=== PATIENT | female | born 1950 | race Caucasian/White ===

== ENCOUNTER 2018-05-23 16:04 | Observation (INO) | payer BC, MEDICARE ==
[2018-05-23 16:35] LABS: #Basophils 0.1 thou/uL (0.0-0.2); #Eosinphils 0.1 thou/uL (0.0-0.7); #Monocytes 0.5 thou/uL (0.11-0.59); #Neutrophils 3.6 thou/uL (1.40-6.50); %Basophils 0.8 % (0.0-1.0); %Eosinophils 2.2 % (0.0-10.0); %Lymphocytes 31.5 % (21.0-51.0); %Monocytes 8.5 % (0.0-10.0); Hemoglobin 15.4 g/dL (12.0-16.0); Mean Corpuscular HGB CONC 33.7 g/dL (32.0-36.0); Mean Corpuscular Hemoglobin 30.7 pg (27.0-31.0); Mean Platelet Volume 7.6 fL (7.4-10.4); Platelet Count 241 thou/uL (130-400); RBC Distribution Width 12.2 % (11.5-14.5); Red Blood Cell (RBC) Count 5.02 mill/uL (4.20-5.40); White Blood Cell (WBC) Count 6.3 thou/uL (4.8-10.8)
[2018-05-23 16:53] LABS: ALT (SGPT) 25 U/L (8-55); AST (SGOT) 16 U/L (5-34); Alkaline Phosphatase 65 U/L (40-150); Anion Gap 16 mmol/L (10-20); BUN (Urea Nitrogen) 13 mg/dL (9.8-20.1); Bilirubin, Total 0.4 mg/dL (0.2-1.2); Calc. Creatinine Clearance 0 mL/min (70-130); Calcium 9.4 mg/dL (7.8-10.44); Carbon Dioxide 24 mmol/L (23-31); Chloride 104 mmol/L (98-107); Estimated GFR-MDRD Greater than 90; Globulin 2.5 g/dL (2.4-3.5); Glucose 103 mg/dL (80-115); Potassium 4.5 mmol/L (3.5-5.1); Protein, Total 6.5 g/dL (6.0-8.3); Sodium 139 mmol/L (136-145)
[2018-05-23 17:01] LABS: CKMB 1.2 ng/mL (0-6.6); Troponin I Less than 0.010 ng/mL (< 0.028)
--- NOTE | 2018-05-23 17:02 | RAD ---
PORTABLE CHEST ONE VIEW 05/23/18 at 3:44 p.m. HISTORY: Chest pain and palpitations. FINDINGS: Comparison is made with the exam of 10/28/14. There is continued elevation of the right hemidiaphragm. The heart size is borderline but stable. The lungs are well expanded without lobar consolidation, pneumothoraces, daniel pulmonary edema or pleura l effusions. IMPRESSION: No radiographic evidence of acute cardiopulmonary process. POS: OFF
[2018-05-23] MEDS ORDERED: Ondansetron HCl/PF 4 MG/2 ML Vial ONE (17:10)
[2018-05-23] MEDS ORDERED: Nitroglycerin 2% Ointment 1 INCH/1 GM Packet ONE (17:41)
[2018-05-23 17:51] LABS: Free T4 (Free Thyroxine) 1.1 ng/dL (0.70-1.48)
[2018-05-23 17:59] LABS: Magnesium 2.3 mg/dL (1.6-2.6)
[2018-05-23] MEDS ORDERED: Senokot 8.6 MG TAB PO PRN (19:31)
[2018-05-23] MEDS ORDERED: Calcium Carbonate 500 MG ChewTAB PO PRN (19:31)
[2018-05-23] MEDS ORDERED: Labetalol HCl 100 MG/20 ML VIAL SLOW IVP PRN (19:31)
[2018-05-23] MEDS ORDERED: Mag-Al 1200 mg/1200 mg/30 ML UDCUP PO PRN (19:31)
[2018-05-23] MEDS ORDERED: ALPRAZolam 0.25 MG TAB PO PRN (19:31)
[2018-05-23] MEDS ORDERED: Nitroglycerin 0.4 MG TAB (25 Tab Bottle) PO PRN (19:31)
[2018-05-23] MEDS ORDERED: Bisoprolol Fumarate 5 MG TAB PO SCH (19:45)
[2018-05-23 20:06] VITALS: BMI 34.7
[2018-05-23 20:14] LABS: Troponin I 0.025 ng/mL (< 0.028)
--- NOTE | 2018-05-23 20:58 | HP ---
DATE OF ADMISSION: 05/23/2018 PRIMARY CARE PHYSICIAN: Dr. Ursula Mcgowan. Primary physician managing thyroid is Dr. Jerome. CHIEF COMPLAINT: Palpitations with shortness of breath on exertion. HISTORY OF PRESENT ILLNESS: The patient is a 67-year-old female with hypothyroidism and hypertension, who presented to the emergency room with above complaints. The patient has a long history of hypothyroidism, which is currently managed by Dr. Jerome. She is currently on compounded liothyronine D3 18.75 mcg daily along with Nature-Throid daily. The patient was out of liothyronine for approximately 5 days last week. She noticed that her pulse rate was running low. For this reason, she cut down bisoprolol from 10 mg to 5 mg. Three days ago, she restarted her liothyronine;however, she continued to take the same dose of bisoprolol. Over the last three days, the patient has palpitations that has been ongoing constantly. She also felt a pulse to be irregular. She felt generally weak along with shortness of breath on short distances. She had some chest pressure today, radiating to her back. She had some nausea without any vomiting. No diaphoresis, recent immobilization or travel reported. She consumes caffeine every morning on a daily basis. Her last dose of medications were this morning including liothyronine, Nature-Throid and half a tablet of bisoprolol, and hydrochlorothiazide. EMS was called when patient had palpitations along with chest pain while she was at work. When EMS arrived, her blood pressure was 209/112 with rhythm showing bigeminy. She received aspirin by the EMS. PAST MEDICAL HISTORY: 1. Hypertension 2. Hyperlipidemia. 3. Hypothyroidism. PAST SURGICAL HISTORY: 1. Tonsillectomy in 1965 2. and delivery x4. 3. Hysterectomy in 2002. 4. Rotator cuff repair in 2005. 5. D&C in 1989. ALLERGIES: Patient is allergic to CIPROFLOXACIN, CODEINE, FLU VACCINE and DTAP VACCINE. CURRENT HOME MEDICATIONS: As discussed above. SOCIAL HISTORY: She smoked socially in 1960s. She denies current use of smoking or drug use. She drinks alcohol socially. She makes her own decision with the help of her family. She is FULL CODE. FAMILY HISTORY: Maternal grandfather with heart disease. Maternal grandmother with stroke. REVIEW OF SYSTEMS: The following complete review of systems was negative, unless otherwise mentioned in the HPI or below: Constitutional: Weight loss or gain, ability to conduct usual activities. Skin: Rash, itching. Eyes: Double vision, pain. ENT/Mouth: Nose bleeding, neck stiffness, pain, tenderness. Cardiovascular: Palpitations, dyspnea on exertion, orthopnea. Respiratory: Shortness of breath, wheezing, cough, hemoptysis, fever or night sweats. Gastrointestinal: Poor appetite, abdominal pain, heartburn, nausea, vomiting, constipation, or diarrhea. Genitourinary: Urgency, frequency, dysuria, nocturia. Musculoskeletal: Pain, swelling. Neurologic/Psychiatric: Anxiety, depression. Allergy/Immunologic: Skin rash, bleeding tendency. PHYSICAL EXAMINATION: VITAL SIGNS: Temperature 98.6, respirations 23, pulse rate of 92, blood pressure of 180/76 with O2 saturation 95% on room air. GENERAL: A 67-year-old female, anxious appearing, in no apparent distress. Denies any chest pain at this time. HEENT: Head: Atraumatic, normocephalic, Sclerae are anicteric. Moist mucous membrane, no oral lesion. NECK: Supple, no JVD appreciated. No carotid bruit. LUNGS: Clear to auscultation bilaterally, no wheezing, rales or rhonchi. Symmetrical. No accessory muscle use. HEART: S1, S2 present. Irregularly irregular. No significant murmur, rubs, or gallops appreciated. ABDOMEN: Soft, nontender, bowel sounds present. EXTREMITIES: No edema or calf tenderness. NEUROLOGIC: Grossly nonfocal, moves all four extremities. PSYCHIATRY: Alert, awake, oriented x3. SKIN: Warm and dry. LYMPH NODES: No palpable lymph nodes in the neck. PERIPHERAL VASCULAR: Radial pulses palpable bilaterally. MUSCULOSKELETAL: No joint swelling or tenderness. SKIN: Warm and dry. LABORATORY FINDINGS: Free T4 1.1 in normal range. Free T3 4.47. Maximum normal range is up to 3.71. TSH was 0.0028. Magnesium, potassium, and sodium normal range, creatinine 0.63. WBC was 6.3 with hemoglobin 15.4. Lipase was normal at 17. Chest x-ray by my review was negative for infiltrate. EKG by my review showed sinus rhythm with multiple PVCs. No EMS rhythm strip in the chart. IMPRESSION: 1. Palpitations suspected secondary to iatrogenic hyperthyroidism. 2. Tachycardia with PVCs. probably related to hyperthyroidism. 3. Chest discomfort, rule out acute coronary syndrome. The chest discomfort is probably secondary to #1. 4. Hypertension. Please note that patient had reduced bisoprolol from 10 mg to 5 mg last week when she noticed that her pulse rate was running low. Also, note that patient was out of - liothyronine for 5 days last week. She felt normal during this period. 5. Plan of care was discussed with the patient in detail. She stated understanding. 6. Hypertensive urgency. PLAN: 1. The patient will be monitored on the telemetry unit. We will increase bisoprolol to 10 mg daily. We will give her extra 5 mg tonight since she took 5 mg this morning. We will also add p.r.n. antihypertensives since patient has elevated blood pressure at this time. 2. We will hold thyroid hormones, consult Cardiology in a.m. Echocardiogram will be obtained. Patient will be kept n.p.o. past midnight. Serial troponins. We will repeat free T3 in a.m. since patient took the last dose this morning. MTDD
[2018-05-23 23:00] LABS: Troponin I Less than 0.010 ng/mL (< 0.028)
[2018-05-24] MEDS ORDERED: Bisoprolol Fumarate 5 MG TAB PO SCH (09:00)
[2018-05-24] MEDS ORDERED: Aspirin 81 mg Enteric Coated Tablet PO SCH (09:00)
--- NOTE | 2018-05-24 09:22 | CON ---
DATE OF CONSULTATION: 05/24/2018 REASON FOR CONSULTATION: Palpitations and chest pain. PRIMARY SPRINKLER HELPER: None. HISTORY OF PRESENT ILLNESS: Ms. Ojeda is a very pleasant 67-year-old woman who recently presented w ith palpitations and chest pressure. Palpitations occur spontaneously. She states she has been rose vinny by Dr. Jerome for hypothyroidism. She came in hyperthyroidism. She was having PVCs present on a frequent basis. She also described chest pressure, but also has a history of rotator cuff issues a nd is unsure whether this is due from her chest or her shoulder. Her heart score is felt to be less than 3, but has difficulty with ambulation due to knee pain. PAST MEDICAL HISTORY: Hypertension, hyperlipidemia, hypothyroidism, now hyperthyroidism. PAST SURGICAL HISTORY: Tonsillectomy, hysterectomy, rotator cuff repair. ALLERGIES: CIPRO, CODEINE. SOCIAL HISTORY: Previously smoked. No current use of tobacco use, occasional alcohol use. FAMILY HISTORY: Negative for CAD. REVIEW OF SYSTEMS: Ten-point review of systems as above, otherwise negative. PHYSICAL EXAMINATION: VITAL SIGNS: Blood pressure 121/55, pulse 42, temperature afebrile. GENERAL: Patient is a pleasant female who is in no acute distress. The patient appears her stated ag e. NEUROLOGIC: The patient is alert and oriented times 3 with no focal neurologic deficits. HEENT: Sclerae without icterus. Mouth has moist mucous membranes with normal pallor. NECK: No JVD. Carotid upstroke brisk. No bruits bilaterally. LUNGS: Clear to auscultation with unlabored respirations. BACK: No scoliosis or kyphosis. CARDIAC: Regular rate and rhythm with normal S1 and S2. No S3 or S4 noted. No significant rubs, mur murs, thrills, or gallops noted throughout the precordium. PMI is not displaced. There is no parast ernal heave. ABDOMEN: Soft, nontender, nondistended. No peritoneal signs present. No hepatosplenomegaly. No abn ormal striae. EXTREMITIES: 2+ femoral and 2+ dorsalis pedis pulses. No cyanosis, clubbing, or edema. SKIN: No gross abnormalities. PERTINENT LABS: Hemoglobin 15.4. Peak troponin less than 0.01. TSH 0.028. CBC within normal limits. EKG showed normal sinus rhythm with PVCs. IMPRESSION: 1. Premature ventricular contractions and palpitations. 2. Chest pressure. RECOMMENDATIONS: PVCs likely related to over treatment with thyroid supplementation. Would recommen d primary team address the issue. Can treat currently with a beta jose to help suppress symptoms. From a cardiac standpoint she does have atypical chest pain. Her heart score is less than 3. Unfort unately, will not be able to proceed with a treadmill stress test due to limited ambulation. Will pr oceed with a Cardiolite stress study and make recommendations.
[2018-05-24] MEDS ORDERED: Bisoprolol Fumarate/HCTZ 5 mg/6.25 mg Tablet PO SCH (12:00)
[2018-05-24 12:21] VITALS: BP 144/66; TEMP 98.2
[2018-05-24] MEDS ORDERED: Regadenoson 0.4 MG/5 ML SYRINGE ONE (14:47)
--- NOTE | 2018-05-24 16:52 | NM ---
MYOCARDIAL PERFUSION EVALUATION: 05/24/18 INDICATION: History of heart palpitations. RADIOPHARMACEUTICAL: 27 millicuries technetium 99m Sestamibi IV with stress and 9 millicuries technetium 99m Sestamibi wit h rest. FINDINGS: When comparing rest and stress images, no reversible myocardial perfusion defect is evident. There is normal wall motion and thickening. Estimated LVEF is 74%. IMPRESSION: No scintigraphic evidence of reversible myocardial ischemia. POS: SHAYE
--- NOTE | 2018-05-25 08:14 | DIS ---
DATE OF DISCHARGE: 05/24/2018 DISCHARGE DISPOSITION: Home. FOLLOWUP: Follow up with primary care physician, Dr. Ursula Mcgowan, in 1 week. Follow up with Cardiol ogy, Dr. Rosario, next week. Follow up with air box tester as outpatient. BRIEF HOSPITAL COURSE: The patient is a 67-year-old female with hypertension and hypothyroidism, pre sented to the emergency room with palpitations as well as shortness of breath on exertion. Her parisa p in the emergency room was consistent with hyperthyroidism with TSH of 0.0028. Free T4 of 1.1 and f ree T3 of 4.47. Her telemetry monitoring showed sinus rhythm with multiple PVCs with intermittent si nus tachycardia. Please refer to the history and physical for further details. The patient was admitted to the hospital with the above diagnosis. The patient was seen by Cardiolog y, Dr. Rosario. Dr. Rosario recommended a stress test which was negative for reversible ischemia . Ejection fraction was 74%. Thyroid medications were held during this hospital stay. Her heart ra te also dropped in 40s, during this hospital stay for which Dr. Rosario recommended to stop her pam e beta blockers. Her blood pressure on the day of discharge is 144/66. She will follow up with Dr. Rosario as outpatient. Repeat TSH with free T3, free T4 after 2-4 weeks is recommended. Primary c are physician advised to follow. FINAL DIAGNOSES: 1. Palpitations secondary to drug induced hyperthyroidism. 2. Tachycardia with premature ventricular contractions secondary to hyperthyroidism. 3. Chest discomfort, probably secondary to #1. 4. Hypertension. 5. Hypertensive urgency on admission. 6. Obesity with a BMI of 34.8 7. Abnormal thyroid studies. Plan of care was discussed with the patient in detail. She stated understanding.
[2018-05-25] MEDS ORDERED: Bisoprolol Fumarate/HCTZ 5 mg/6.25 mg Tablet PO SCH (09:00)
== END 2018-05-24 18:54 | disposition home or self-care (01) ==
LOC: ERS 16:04 → 2SW 18:08
PROVIDERS: ADMIT Internal Medicine; ATTEND Internal Medicine
DX: E05.80 Other thyrotoxicosis without thyrotoxic crisis or storm (principal); T38.1X5A Adverse effect of thyroid hormones and substitutes, initial encounter; I49.3 Ventricular premature depolarization; R00.2 Palpitations; R06.02 Shortness of breath; R07.89 Other chest pain; I10 Essential (primary) hypertension; E03.9 Hypothyroidism, unspecified; I16.0 Hypertensive urgency; E78.5 Hyperlipidemia, unspecified; E66.9 Obesity, unspecified; Z68.34 Body mass index [BMI] 34.0-34.9, adult; Z87.891 Personal history of nicotine dependence; Z79.899 Other long term (current) drug therapy; Z88.1 Allergy status to other antibiotic agents; Z88.5 Allergy status to narcotic agent; Z88.7 Allergy status to serum and vaccine
CPT/HCPCS: 36415; 71045; 78452; 80053; 82553; 83690; 83735; 84439; 84443; 84481; 84484; 85025; 93005; 93017; 96374; A9500; G0378; J2405; J2785

== ENCOUNTER 2020-06-05 13:25 | Outpatient (CLI) | payer BC ==
--- NOTE | 2020-06-05 15:10 | MMO ---
Bilateral MAMMO Bilat Screen [facility]. CLINICAL HISTORY: Patient is 69 years old and is seen for screening. The patient has the following family history of breast cancer: mother. The patient has no personal history of cancer. VIEWS: The views performed were: bilateral craniocaudal with tomosynthesis and bilateral mediolateral oblique with tomosynthesis. FILMS COMPARED: The present examination has been compared to prior imaging studies performed at [facility] on 05/11/2011 and 01/08/2016, and at [facility] on 04/09/2004 and 10/11/2007. This study has been interpreted with the assistance of computer-aided detection. MAMMOGRAM FINDINGS: There are scattered fibroglandular densities. There are no suspicious masses, suspicious calcifications, or new areas of architectural distortion. IMPRESSION: THERE IS NO MAMMOGRAPHIC EVIDENCE OF MALIGNANCY. A ROUTINE FOLLOW-UP MAMMOGRAM IN 1 YEAR IS RECOMMENDED. THE RESULTS OF THIS EXAM WERE SENT TO THE PATIENT. ACR BI-RADS Category 1 - Negative MAMMOGRAPHY NOTE: 1. A negative mammogram report should not delay a biopsy if a dominant of clinically suspicious mass is present. 2. Approximately 10% to 15% of breast cancers are not detected by mammography. 3. Adenosis and dense breasts may obscure an underlying neoplasm. Reported by: ZAYNAB WARREN MD Electonically Signed: [id number]
== END 2020-06-05 13:26 | disposition home or self-care (01) ==
LOC: BICMAMMO 13:25
PROVIDERS: ATTEND Family Medicine
DX: Z12.31 Encounter for screening mammogram for malignant neoplasm of breast (principal); Z80.3 Family history of malignant neoplasm of breast
CPT/HCPCS: 36415; 77063; 77067; 80053; 80061; 81001; 85025

== ENCOUNTER 2021-06-18 15:33 | Outpatient (CLI) | payer BC | END 2021-06-18 15:34 | disposition home or self-care (01) | LOC: BICMAMMO 15:33 | PROVIDERS: ATTEND Family Medicine | DX: Z12.31 Encounter for screening mammogram for malignant neoplasm of breast (principal) | CPT/HCPCS: 77063; 77067 ==

== ENCOUNTER 2023-03-29 11:01 | Outpatient (CLI) | payer BC, MEDICARE | END 2023-03-29 11:02 | disposition home or self-care (01) | LOC: BICMAMMO 11:01 | PROVIDERS: ATTEND Nurse Practitioner Family | DX: Z12.31 Encounter for screening mammogram for malignant neoplasm of breast (principal) | CPT/HCPCS: 77063; 77067 ==